=== PATIENT | female | born 1945 | race Caucasian/White ===

== ENCOUNTER → 2016-07-30 | Outpatient (CLI) | payer MEDICARE ==
[~2016-07-30] MED LIST: AMLO5TAB96 PO; ATOR10 PO; BIOT10TA PO; CALC600T34 PO; CART240C4 PO; ESTR2TAB PO; LORTA5 PO; METF500 PO; PROT40TA PO; SPIR25 PO; TAB-TAB PO; WALKER STANDARD; [UNRECOGNIZED DRUG - OTHER]; magnesium PO
[2016-07-30 09:06] LABS: AUTOMATED NEUTROPHIL # 4.4 TH/MM3 (1.8-7.7); BASOPHIL % 0.6 % (0.0-2.0); EOSINOPHIL # 0.1 TH/MM3 (0-0.4); EOSINOPHIL % 1.2 % (0.0-4.0); HEMATOCRIT 37.3 % (35.0-46.0); HEMO FLAGS DIFF FINAL; LYMPH % 31.4 % (9.0-44.0); LYMPHOCYTE # 2.3 TH/MM3 (1.0-4.8); MEAN CELL VOLUME 88.1 FL (80.0-100.0); MEAN CORPUSCULAR HEMOGLOBIN 30.6 PG (27.0-34.0); MEAN CORPUSCULAR HGB CONC 34.7 % (32.0-36.0); MONO % 6.8 % (0.0-8.0); PLATELET COUNT 254 TH/MM3 (150-450); RED BLOOD COUNT 4.24 MIL/MM3 (4.00-5.30); RED CELL DISTRIBUTION WIDTH 13.2 % (11.6-17.2); WHITE BLOOD COUNT 7.3 TH/MM3 (4.0-11.0)
[2016-07-30 09:21] LABS: ALKALINE PHOSPHATASE 81 U/L (45-117); ALT (GPT) 27 U/L (10-53); ANION GAP 6 MEQ/L (5-15); AST (GOT) 22 U/L (15-37); BICARBONATE 27.8 MEQ/L (21.0-32.0); BLOOD UREA NITROGEN 18 MG/DL (7-18); CHLORIDE 104 MEQ/L (98-107); GLOMERULAR FILTRATION RATE 53 ML/MIN (>89); GLUCOSE,FASTING 86 MG/DL (74-99); HDL CHOLESTEROL 69.3 MG/DL (40.0-60.0); LDL CHOLESTEROL 83 MG/DL (0-99); SODIUM (NA) 138 MEQ/L (136-145); TOTAL BILIRUBIN ADULT 0.3 MG/DL (0.2-1.0)
[2016-07-30 16:51] LABS: HEMOGLOBIN A1a 1.1 %; HEMOGLOBIN A1b 0.7 %; HEMOGLOBIN Ao 53.7 %; HEMOGLOBIN F 1.1 %; HEMOGLOBIN LA1C 1.3 %; HEMOGLOBIN P3 2.5 %
== END ==
LOC: PLAB 07:24
PROVIDERS: ATTEND Family Medicine
DX: I10 Essential (primary) hypertension (principal); E78.5 Hyperlipidemia, unspecified; R73.02 Impaired glucose tolerance (oral); E83.42 Hypomagnesemia; R53.83 Other fatigue; Z51.81 Encounter for therapeutic drug level monitoring
CPT/HCPCS: 36415; 80053; 80061; 83036; 83735; 84443; 85025

== ENCOUNTER → 2016-09-29 | Outpatient (CLI) | payer MEDICARE ==
[2016-09-29 10:21] LABS: INDIRECT BILIRUBIN 0.2 MG/DL (0.0-0.8); TOTAL BILIRUBIN ADULT 0.3 MG/DL (0.2-1.0)
== END ==
LOC: PLAB 07:29
PROVIDERS: ATTEND Internal Medicine Gastroenterology
DX: R93.2 Abnormal findings on diagnostic imaging of liver and biliary tract (principal); R93.3 Abnormal findings on diagnostic imaging of other parts of digestive tract; R63.4 Abnormal weight loss; R15.9 Full incontinence of feces; K62.5 Hemorrhage of anus and rectum
CPT/HCPCS: 36415; 80076

== ENCOUNTER → 2017-02-11 | Outpatient (CLI) | payer MEDICARE ==
[~2017-02-11] MED LIST changes: +ASPI325T PO; +ASPI81CH CHEW; +ATOR20TA15 PO; +CALC500C2 CHEW; +CARD240C6 PO; +ESTR2TAB4 PO; +LIPI10TA PO; +METF500T4 PO; +PANT20 PO; +PLAV75TA29 PO; +SPIR25TA PO
[2017-02-11 13:50] LABS: ANION GAP 8 MEQ/L (5-15); AST (GOT) 23 U/L (15-37); BICARBONATE 25.1 MEQ/L (21.0-32.0); BLOOD UREA NITROGEN 16 MG/DL (7-18); CHLORIDE 107 MEQ/L (98-107); GLOMERULAR FILTRATION RATE 60 ML/MIN (>89); GLUCOSE,FASTING 86 MG/DL (74-99); SODIUM (NA) 140 MEQ/L (136-145)
[2017-02-11 14:03] LABS: ALKALINE PHOSPHATASE 79 U/L (45-117); ALT (GPT) 21 U/L (10-53); LDL CHOLESTEROL 80 MG/DL (0-99); LDL CHOLESTEROL DIRECT 103 MG/DL (0-99); TOTAL BILIRUBIN ADULT 0.3 MG/DL (0.2-1.0)
[2017-02-11 16:12] LABS: HEMOGLOBIN A1b 0.6 %; HEMOGLOBIN F 1.1 %; HEMOGLOBIN LA1C 1.3 %; HEMOGLOBIN P3 2.4 %
== END ==
LOC: PLAB 08:33
PROVIDERS: ATTEND Family Medicine
DX: E78.5 Hyperlipidemia, unspecified (principal); N18.3 Chronic kidney disease, stage 3 (moderate); R73.02 Impaired glucose tolerance (oral)
CPT/HCPCS: 36415; 80053; 80061; 83036; 83721

== ENCOUNTER 2017-03-25 11:51 | Inpatient (IN) | payer MEDICARE ==
[2017-03-25] VITALS (7 sets, daily range): BP systolic 106–165; BP diastolic 57–84; PULSE 63–72; RESP 14–18; TEMP 97.8–98.2; O2SAT 94–98
[~2017-03-25] VITALS: Ht 157.5 cm; Wt 64.4 kg
[~2017-03-25 11:51] MED LIST changes: -ASPI325T PO; -ASPI81CH CHEW; -ATOR20TA15 PO; -CALC500C2 CHEW; -CARD240C6 PO; -ESTR2TAB4 PO; -LIPI10TA PO; -METF500T4 PO; -PANT20 PO; -PLAV75TA29 PO; -SPIR25TA PO
[2017-03-25] MEDS ORDERED: SODIUM CHLORIDE 0.9% FLUSH 10 ML FLUSH IVF PRN (12:15)
[2017-03-25] MEDS ORDERED: SODIUM CHLOR 0.9% 1000 ML INJ 1,000 ML IV ONE (12:15)
[2017-03-25] MEDS ORDERED: BIOT10TA PO (12:25)
[2017-03-25] MEDS ORDERED: PANT20 PO (12:25)
[2017-03-25] MEDS ORDERED: ESTR2TAB4 PO (12:25)
[2017-03-25] MEDS ORDERED: SPIR25TA PO (12:25)
[2017-03-25] MEDS ORDERED: CALC500C2 CHEW (12:25)
[2017-03-25] MEDS ORDERED: CARD240C6 PO (12:25)
[2017-03-25] MEDS ORDERED: METF500T4 PO (12:25)
[2017-03-25] MEDS ORDERED: ASPI81CH CHEW (12:25)
[2017-03-25] MEDS ORDERED: LIPI10TA PO (12:25)
[2017-03-25] MEDS ORDERED: ATOR20TA15 PO (12:25)
--- NOTE | 2017-03-25 12:37 | RADRPT ---
EXAM DATE/TIME: 03/25/2017 12:23 [facility] COMPARISON: No previous studies available for comparison. INDICATIONS : Shortness of breath. MEDICAL HISTORY : Heart. SURGICAL HISTORY : None. ENCOUNTER: Initial ACUITY: 1 day PAIN SCORE: 0/10 LOCATION: Bilateral chest FINDINGS: A single view of the chest demonstrates the lungs to be symmetrically aerated without evidence of mas s, infiltrate or effusion. The cardiomediastinal contours are unremarkable. Osseous structures are intact. CONCLUSION: No acute disease. Shahid Rogers MD on March 25, 2017 at 12:35 Board Certified Radiologist. This report was verified electronically.
--- NOTE | 2017-03-25 12:37 | PD ---
HPI Chief Complaint: Neuro Symptoms/ Deficits Time Seen by Provider: 12:01 Travel History International Travel<30 days: No Contact w/Intl Traveler<30days: No Traveled to known affect area: No History of Present Illness HPI Patient is a 72-year-old female with history of vertebral artery dissection, was sent to the emergency room by her neurologist, Dr. Hare for evaluation and admission to the hospital for evaluation of crescendo TIAs. 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 Patient reports that symptoms lasted for about 15 minutes and resolved on its own. Patient reports that symptoms occurred again the next day, she did follow-up with her neurologist Dr. Hare today who was concerned that patient may be having crescendo TIA's. Patient has complete resolutions of time. Patient with no complaints. As per Dr. Hare, patient has history of a right vertebral artery dissection with stent placement at the [facility] one year ago. Patient was sent to the emergency room for CT imaging in as well as admission to the hospital for further workup of TIAs. Patient this time complains of no headache or dizziness, patient with no weakness. Denies any chest pain or shortness of breath. Patient does take a baby ASA every day. PFSH Past Medical History Asthma: Yes (mild) Autoimmune Disease: No Blood Disorders: No Heart Rhythm Problems: No Cancer: No Cardiovascular Problems: Yes High Cholesterol: Yes Chest Pain: No Congestive Heart Failure: No Cerebrovascular Accident: Yes (poss tia) Diminished Hearing: No Endocrine: No Gastrointestinal Disorders: Yes GERD: Yes Genitourinary: No Headaches: No Hypertension: Yes Immune Disorder: No Musculoskeletal: Yes Neurologic: Yes (VISUAL DISTURBANCES) Psychiatric: No Reproductive: No Respiratory: Yes Migraines: Yes (ocular migraines) Myocardial Infarction: No Seizures: No ?: Not Past Surgical History Abdominal Surgery: Yes AICD: No Cardiac Surgery: No Ear Surgery: No Endocrine Surgery: Yes Eye Surgery: No Genitourinary Surgery: No Gynecologic Surgery: No Hysterectomy: Yes (PARTIAL) Oral Surgery: No Pacemaker: No Thoracic Surgery: No Other Surgery: Yes Social History Alcohol Use: Yes (wine daily) Tobacco Use: No Substance Use: No Allergies-Medications (Allergen,Severity, Reaction): Coded Allergies: ADONIS Inhibitors (Verified Allergy, Severe, Anaphylaxis, 03/25/17) ARB-Angiotensin Receptor Antagonist (Verified Allergy, Severe, Anaphylaxis , 03/25/17) Sulfa (Sulfonamide Antibiotics) (Unverified Allergy, Severe, hives, ) benazepril (Unverified Allergy, Severe, anaphylactic, 03/25/17) captopril (Unverified Allergy, Severe, anaphylactic, 03/25/17) cottonseed oil (Unverified Allergy, Severe, hives, 03/25/17) doxycycline (Unverified Allergy, Severe, STATES - NO ALLERGY TO TETRACYCLINE, 03/25/17) enalaprilat (Unverified Allergy, Severe, anaphylactic, 03/25/17) erythromycin base (Unverified Allergy, Severe, hives, 03/25/17) fosinopril (Unverified Allergy, Severe, anaphylactic, 03/25/17) levalbuterol (Unverified Allergy, Severe, sob and flushing, 03/25/17) lisinopril (Unverified Allergy, Severe, anaphylactic, 03/25/17) losartan (Unverified Allergy, Severe, arb's cause anaphylactic, 03/25/17) minocycline (Unverified Allergy, Severe, STATES - NO ALLERGY TO TETRACYCLINE, 03/25/17) quinapril (Unverified Allergy, Severe, anaphylactic, 03/25/17) thimerosal (Verified Allergy, Severe, Swelling, 03/25/17) tigecycline (Unverified Allergy, Severe, STATES - NO ALLERGY TO TETRACYCLINE, 03/25/17) furosemide (Unverified Allergy, Unknown, 03/25/17) Uncoded Allergies: FLU SHOT (Allergy, Severe, generalized swelling, 03/01/08) perservatives in the flu shot Reported Meds & Prescriptions Reported Meds & Active Scripts Active Reported Atorvastatin (Atorvastatin Calcium) 20 Mg Tab 20 Mg PO HS Spironolactone 25 Mg Tab 25 Mg PO DAILY Metformin ER (Metformin HCl) 500 Mg Maggi 500 Mg PO DAILY With evening meal Protonix (Pantoprazole Sodium) 20 Mg Tab 20 Mg PO DAILY Aspirin 81 Mg Chew 81 Mg CHEW DAILY Estrace (Estradiol) 2 Mg Tab 2 Mg PO DAILY Calcium (Calcium Carbonate-Cholecalciferol) 1,250-100 Mg-Unit Chew 1 Tab CHEW DAILY Biotin 10 Mg Tab 10 Mg PO DAILY Lipitor (Atorvastatin Calcium) 10 Mg Tab 10 Mg PO HS Cardizem CD 24 HR (Diltiazem CD 24 HR) 240 Mg Caper 240 Mg PO DAILY [dust mite inj] DIRECTED pt takes this injection q 2-3 weeks [magnesium] 250 Mg PO DAILY Review of Systems General / Constitutional: No: Fever Eyes: No: Visual changes HENT: No: Headaches Cardiovascular: No: Chest Pain or Discomfort Respiratory: No: Shortness of Breath Gastrointestinal: No: Abdominal Pain Genitourinary: No: Dysuria Musculoskeletal: No: Pain Skin: No Rash Neurologic: No: Weakness Psychiatric: No: Depression Endocrine: No: Polydipsia Hematologic/Lymphatic: No: Easy Bruising Physical Exam Narrative GENERAL: NAD, Nontoxic SKIN: Focused skin assessment warm/dry. HEAD: Atraumatic. Normocephalic. EYES: Pupils equal and round. No scleral icterus. No injection or drainage. ENT: No nasal bleeding or discharge. Mucous membranes pink and moist. NECK: Trachea midline. No JVD. CARDIOVASCULAR: Regular rate and rhythm. No murmur appreciated. RESPIRATORY: No accessory muscle use. Clear to auscultation. Breath sounds equal bilaterally. GASTROINTESTINAL: Abdomen soft, non-tender, nondistended. Hepatic and splenic margins not palpable. MUSCULOSKELETAL: No obvious deformities. No clubbing. No cyanosis. No edema. NEUROLOGICAL: Awake and alert. No obvious cranial nerve deficits. Motor grossly within normal limits. Normal speech. CN 2-12 grossly intact with no neurological deficits PSYCHIATRIC: Appropriate mood and affect; insight and judgment normal. Data Data Last Documented VS Vital Signs Date Time Temp Pulse Resp B/P (MAP) Pulse Ox O2 Delivery O2 Flow Rate FiO2 03/25/17 12:31 98 Room Air 03/25/17 11:56 97.8 72 14 Orders Orders Electrocardiogram (03/25/17 12:02) Prothrombin Time / Inr (Pt) (03/25/17 12:02) Act Partial Throm Time (Ptt) (03/25/17 12:02) Complete Blood Count With Diff (03/25/17 12:02) Comprehensive Metabolic Panel (03/25/17 12:02) Creatine Kinase (Cpk) (03/25/17 12:02) Troponin I (03/25/17 12:02) Urinalysis - C+S If Indicated (03/25/17 12:02) Ct Brain W/O Iv Contrast(Rout) (03/25/17 12:02) Cta Brain W Iv Contrast W 3d (03/25/17 12:02) Cta Neck W Iv Contrast W 3d (03/25/17 12:02) Chest, Single Ap (03/25/17 12:02) Ecg Monitoring (03/25/17 12:02) Iv Access Insert/Monitor (03/25/17 12:02) Oximetry (03/25/17 12:02) Sodium Chloride 0.9% Flush (Ns Flush) (03/25/17 12:15) Sodium Chlor 0.9% 1000 Ml Inj (Ns 1000 M (03/25/17 12:15) Iohexol 350 Inj (Omnipaque 350 Inj) (03/25/17 14:15) Aspirin (Aspirin) (03/25/17 15:15) Admit Order (Ed Use Only) (03/25/17 15:13) Labs Laboratory Tests Test 03/25/17 12:12 03/25/17 13:16 White Blood Count 10.1 TH/MM3 Red Blood Count 4.50 MIL/MM3 Hemoglobin 13.9 GM/DL Hematocrit 40.6 % Mean Corpuscular Volume 90.2 FL Mean Corpuscular Hemoglobin 30.8 PG Mean Corpuscular Hemoglobin Concent 34.1 % Red Cell Distribution Width 12.5 % Platelet Count 317 TH/MM3 Mean Platelet Volume 8.0 FL Neutrophils (%) (Auto) 60.9 % Lymphocytes (%) (Auto) 32.1 % Monocytes (%) (Auto) 5.8 % Eosinophils (%) (Auto) 0.8 % Basophils (%) (Auto) 0.4 % Neutrophils # (Auto) 6.1 TH/MM3 Lymphocytes # (Auto) 3.2 TH/MM3 Monocytes # (Auto) 0.6 TH/MM3 Eosinophils # (Auto) 0.1 TH/MM3 Basophils # (Auto) 0.0 TH/MM3 CBC Comment DIFF FINAL Differential Comment Prothrombin Time 10.3 SEC Prothromb Time International Ratio 0.9 RATIO Activated Partial Thromboplast Time 25.6 SEC Blood Urea Nitrogen 15 MG/DL Creatinine 0.95 MG/DL Random Glucose 77 MG/DL Total Protein 7.6 GM/DL Albumin 3.8 GM/DL Calcium Level 9.0 MG/DL Alkaline Phosphatase 82 U/L Aspartate Amino Transf (AST/SGOT) 18 U/L Alanine Aminotransferase (ALT/SGPT) 21 U/L Total Bilirubin 0.4 MG/DL Sodium Level 136 MEQ/L Potassium Level 3.9 MEQ/L Chloride Level 104 MEQ/L Carbon Dioxide Level 24.2 MEQ/L Anion Gap 8 MEQ/L Estimat Glomerular Filtration Rate 58 ML/MIN Total Creatine Kinase 78 U/L Troponin I LESS THAN 0.02 NG/ML Urine Color LIGHT-YELLOW Urine Turbidity CLEAR Urine pH 7.5 Urine Specific Cullen 1.006 Urine Protein NEG mg/dL Urine Glucose (UA) NEG mg/dL Urine Ketones NEG mg/dL Urine Occult Blood NEG Urine Nitrite NEG Urine Bilirubin NEG Urine Urobilinogen LESS THAN 2.0 MG/DL Urine Leukocyte Esterase NEG Urine WBC LESS THAN 1 /hpf Urine Squamous Epithelial Cells 1 /hpf Microscopic Urinalysis Comment CATH-CULT NOT IND MDM Medical Decision Making Medical Screen Exam Complete: Yes Emergency Medical Condition: Yes Medical Record Reviewed: Yes Interpretation(s) EKG at 1224: NSR at 63bpm, qt/qtc: 410/418, no acute st or t wave changes Vital Signs Date Time Temp Pulse Resp B/P (MAP) Pulse Ox O2 Delivery O2 Flow Rate FiO2 03/25/17 11:56 97.8 72 14 148/77 (100) 95 Differential Diagnosis Differential includes TIAs, CVA Narrative Course Patient is a 72-year-old female who was sent to the emergency room by Dr. Hare for admission to the hospital workup for crescendo TIAs. He requested that patient have a CT of the head, and brain to evaluate her stents in her vertebral artery. Patient currently asymptomatic this time. Plan to admit to the hospitalist with neurology consult. Patient is a symptomatic this time. Patient was placed on a property assessment monitor upon arrival to the emergency room. Vital Signs Date Time Temp Pulse Resp B/P (MAP) Pulse Ox O2 Delivery O2 Flow Rate FiO2 03/25/17 12:31 98 Room Air 03/25/17 11:56 97.8 72 14 148/77 (100) 95 Laboratory Tests Test 03/25/17 12:12 03/25/17 13:16 White Blood Count 10.1 TH/MM3 (4.0-11.0) Red Blood Count 4.50 MIL/MM3 (4.00-5.30) Hemoglobin 13.9 GM/DL (11.6-15.3) Hematocrit 40.6 % (35.0-46.0) Mean Corpuscular Volume 90.2 FL (80.0-100.0) Mean Corpuscular Hemoglobin 30.8 PG (27.0-34.0) Mean Corpuscular Hemoglobin Concent 34.1 % (32.0-36.0) Red Cell Distribution Width 12.5 % (11.6-17.2) Platelet Count 317 TH/MM3 (150-450) Mean Platelet Volume 8.0 FL (7.0-11.0) Neutrophils (%) (Auto) 60.9 % (16.0-70.0) Lymphocytes (%) (Auto) 32.1 % (9.0-44.0) Monocytes (%) (Auto) 5.8 % (0.0-8.0) Eosinophils (%) (Auto) 0.8 % (0.0-4.0) Basophils (%) (Auto) 0.4 % (0.0-2.0) Neutrophils # (Auto) 6.1 TH/MM3 (1.8-7.7) Lymphocytes # (Auto) 3.2 TH/MM3 (1.0-4.8) Monocytes # (Auto) 0.6 TH/MM3 (0-0.9) Eosinophils # (Auto) 0.1 TH/MM3 (0-0.4) Basophils # (Auto) 0.0 TH/MM3 (0-0.2) CBC Comment DIFF FINAL Differential Comment Prothrombin Time 10.3 SEC (9.8-11.6) Prothromb Time International Ratio 0.9 RATIO Activated Partial Thromboplast Time 25.6 SEC (24.3-30.1) Blood Urea Nitrogen 15 MG/DL (7-18) Creatinine 0.95 MG/DL (0.50-1.00) Random Glucose 77 MG/DL (74-106) Total Protein 7.6 GM/DL (6.4-8.2) Albumin 3.8 GM/DL (3.4-5.0) Calcium Level 9.0 MG/DL (8.5-10.1) Alkaline Phosphatase 82 U/L (45-117) Aspartate Amino Transf (AST/SGOT) 18 U/L (15-37) Alanine Aminotransferase (ALT/SGPT) 21 U/L (10-53) Total Bilirubin 0.4 MG/DL (0.2-1.0) Sodium Level 136 MEQ/L (136-145) Potassium Level 3.9 MEQ/L (3.5-5.1) Chloride Level 104 MEQ/L (98-107) Carbon Dioxide Level 24.2 MEQ/L (21.0-32.0) Anion Gap 8 MEQ/L (5-15) Estimat Glomerular Filtration Rate 58 ML/MIN (>89) Total Creatine Kinase 78 U/L (26-192) Troponin I LESS THAN 0.02 NG/ML Urine Color LIGHT-YELLOW (YELLW/STRAW) Urine Turbidity CLEAR (CLEAR) Urine pH 7.5 (5.0-8.5) Urine Specific Cullen 1.006 (1.002-1.035) Urine Protein NEG mg/dL (NEG-TRACE) Urine Glucose (UA) NEG mg/dL (NEG) Urine Ketones NEG mg/dL (NEG) Urine Occult Blood NEG (NEG) Urine Nitrite NEG (NEG) Urine Bilirubin NEG (NEG) Urine Urobilinogen LESS THAN 2.0 MG/DL (LESS Urine Leukocyte Esterase NEG (NEG) Urine WBC LESS THAN 1 /hpf (0-5) Urine Squamous Epithelial Cells 1 /hpf (0-5) Microscopic Urinalysis Comment CATH-CULT NOT IND Last Impressions Neck CTA 03/25/171201 Signed Impressions: Service Date/Time: March 13:51 - CONCLUSION: 1. No significant carotid artery stenosis on the right. 2. Approximately 40%% stenosis of the proximal left internal carotid artery secondary to concentric mixed plaque. 3. Tandem calcified plaque in the origin and proximal right vertebral artery with likely moderate resultant stenosis. 4. Please note that the internal carotid cervical segments are significantly medialized with essentially a retropharyngeal course on the right. Wang Barker MD Head CT 03/25/17 120 Signed Impressions: Service Date/Time: March 13:51 - CONCLUSION: Normal examination for a patient of this age. Andrea Gee MD Chest X-Ray 03/25/171201 Signed Impressions: Service Date/Time: March 12:23 - CONCLUSION: No acute disease. Shahid Rogers MD patient was given an asa case reviewed with [facility] residents who accepts pt to their service Diagnosis Primary Impression: TIA (transient ischemic attack) Qualified Codes: G45.9 - Transient cerebral ischemic attack, unspecified Admitting Information Admitting Physician Requests: Nina Pérez DO Mar 25, 2017 12:37
[2017-03-25 12:51] LABS: AUTOMATED NEUTROPHIL # 6.1 TH/MM3 (1.8-7.7); BASOPHIL % 0.4 % (0.0-2.0); EOSINOPHIL # 0.1 TH/MM3 (0-0.4); EOSINOPHIL % 0.8 % (0.0-4.0); HEMATOCRIT 40.6 % (35.0-46.0); HEMO FLAGS DIFF FINAL; LYMPH % 32.1 % (9.0-44.0); LYMPHOCYTE # 3.2 TH/MM3 (1.0-4.8); MEAN CELL VOLUME 90.2 FL (80.0-100.0); MEAN CORPUSCULAR HEMOGLOBIN 30.8 PG (27.0-34.0); MEAN CORPUSCULAR HGB CONC 34.1 % (32.0-36.0); MONO % 5.8 % (0.0-8.0); NEUT % 60.9 % (16.0-70.0); PLATELET COUNT 317 TH/MM3 (150-450); RED CELL DISTRIBUTION WIDTH 12.5 % (11.6-17.2); WHITE BLOOD COUNT 10.1 TH/MM3 (4.0-11.0)
[2017-03-25 13:01] LABS: APTT (PATIENT) 25.6 SEC (24.3-30.1); INTERNATIONAL NORMALIZED RATIO 0.9 RATIO; PROTHROMBIN TIME - PATIENT 10.3 SEC (9.8-11.6)
[2017-03-25 13:20] LABS: ANION GAP 8 MEQ/L (5-15); BICARBONATE 24.2 MEQ/L (21.0-32.0); BLOOD UREA NITROGEN 15 MG/DL (7-18); CHLORIDE 104 MEQ/L (98-107); GLOMERULAR FILTRATION RATE 58 ML/MIN (>89); POTASSIUM 3.9 MEQ/L (3.5-5.1); SODIUM (NA) 136 MEQ/L (136-145)
[2017-03-25 13:21] LABS: ALT (GPT) 21 U/L (10-53)
[2017-03-25 13:25] LABS: ALKALINE PHOSPHATASE 82 U/L (45-117); AST (GOT) 18 U/L (15-37); TOTAL BILIRUBIN ADULT 0.4 MG/DL (0.2-1.0)
[2017-03-25 13:29] LABS: CREATINE KINASE 78 U/L (26-192)
[2017-03-25 13:34] LABS: BLOOD, URINE NEG (NEG); GLUCOSE,URINE NEG (NEG); KETONE, URINE NEG (NEG); NITRITE,URINE NEG (NEG); PH, URINE 7.5 (5.0-8.5); SQUAMOUS EPITHELIAL CELL URINE 1 /hpf (0-5); URINE COLOR LIGHT-YELLOW (YELLW/STRAW)
[2017-03-25 13:35] LABS: COMMENT (UR) CATH-CULT NOT IND; CULTURE IF INDICATED CATH CULTURE NOT IND
[2017-03-25] MEDS ORDERED: IOHEXOL 350 MG/ML 10 ML VIAL (for RAD DIAG) IVCONTRAST ONE (14:15)
--- NOTE | 2017-03-25 14:20 | RADRPT ---
EXAM DATE/TIME: 03/25/2017 13:51 [facility] COMPARISON: No previous studies available for comparison. INDICATIONS : Intermittent right upper extremity flaccidity for 2 days. RADIATION DOSE: 32.13 CTDIvol (mGy) MEDICAL HISTORY : Cerebrovascular disease. Hypertension. SURGICAL HISTORY : Appendectomy. Hysterectomy.Vertebral stent, cervical fusion ENCOUNTER: Initial ACUITY: 2 days PAIN SCALE: 0/10 LOCATION: cranial TECHNIQUE: Multiple contiguous axial images were obtained of the head. Using automated exposure control and adj ustment of the mA and/or kV according to patient size, radiation dose was kept as low as reasonably a chievable to obtain optimal diagnostic quality images. DICOM format image data is available electro nically for review and comparison. FINDINGS: CEREBRUM: The ventricles are normal for age. There is bilateral cortical atrophy. No evidence of midline shift , mass lesion, hemorrhage or acute infarction. No extra-axial fluid collections are seen. POSTERIOR FOSSA: The cerebellum and brainstem are intact. The 4th ventricle is midline. The cerebellopontine angle i s unremarkable. EXTRACRANIAL: The visualized portion of the orbits is intact. SKULL: The calvaria is intact. No evidence of skull fracture. CONCLUSION: Normal examination for a patient of this age. Andrea Gee MD on March 25, 2017 at 14:17 Board Certified Radiologist. This report was verified electronically.
--- NOTE | 2017-03-25 14:52 | RADRPT ---
EXAM DATE/TIME: 03/25/2017 13:51 [facility] COMPARISON: No previous studies available for comparison. INDICATIONS : Intermittent right upper extremity flaccidity for 2 days. IV CONTRAST: 74 cc Omnipaque 350 (iohexol) IV ; Cumulative dose for multiple exams. RADIATION DOSE: 26.78 CTDIvol (mGy) ; Combined studies MEDICAL HISTORY : Cerebrovascular disease. Hypertension. SURGICAL HISTORY : Appendectomy. Hysterectomy.Vertebral stent, cervical fusion ENCOUNTER: Initial ACUITY: 2 days PAIN SCALE: 0/10 LOCATION: neck Elevated flow velocities and ICA/CCA ratios have been found to correlate with increased degrees of vessel stenosis, calculated as percentage of diameter relative to a normal segment of distal ICA/CCA. TECHNIQUE: Volumetric scanning was performed using a multirow detector CT scanner. The data was post processed with a variety of visualization algorithms including full-volume maximum intensity projection, multip lanar sliding thin-slab reformation, curved-planar reformation, and surface-rendering techniques. Us ing automated exposure control and adjustment of the mA and/or kV according to patient size, radiatio n dose was kept as low as reasonably achievable to obtain optimal diagnostic quality images. DICOM f ormat image data is available electronically for review and comparison. FINDINGS: AORTIC ARCH: There is a bovine type two vessel origin of the great vessels from the aorta. No evidence of ostial narrowing. RIGHT CAROTID: The common carotid artery is intact. The carotid bulb is medialized but is otherwise unremarkable wit hout ulceration or narrowing. No significant internal carotid artery stenosis. However, the internal card artery cervical segment is significantly medialized and essentially retropharyngeal and course. The external carotid artery is intact. LEFT CAROTID: The common carotid artery is intact. The carotid bulb is medialized but is otherwise unremarkable wi thout ulceration or narrowing. There is approximately 40% luminal stenosis of the proximal internal c arotid artery secondary to concentric mixed plaque. Again, the internal card artery cervical segment is medialized although less prominently than the right. The external carotid artery is intact. VERTEBRALS: Tandem calcified plaque in the origin and proximal right vertebral artery with likely moderate result ant stenosis. The vertebral arteries otherwise have a symmetric diameter. No stenotic lesions are no mohsen on the left. CONCLUSION: 1. No significant carotid artery stenosis on the right. 2. Approximately 40% stenosis of the proximal left internal carotid artery secondary to concentric mi xed plaque. 3. Tandem calcified plaque in the origin and proximal right vertebral artery with likely moderate res ultant stenosis. 4. Please note that the internal carotid cervical segments are significantly medialized with essentia lly a retropharyngeal course on the right. Wang Barker MD on March 25, 2017 at 14:39 Board Certified Radiologist. This report was verified electronically.
[2017-03-25] MEDS ORDERED: ASPIRIN 325 MG TAB PO ONE (15:15)
--- NOTE | 2017-03-25 15:22 | HHI.HP ---
[facility] Service Family Medicine Primary Care Physician Scott Schaeffer MD Admission Diagnosis Diagnoses: International Travel<30 Days: No Contact w/Intl Traveler<30days: No Known Affected Area: No History of Present Illness Very pleasant 72 year old female with PMH significant for vertebral artery dissection with stent placement at [facility] one year ago, DM, HLD, HTN who is sent to the ED by her neurologist Dr. Hare for further evaluation and concern for crescendo TIAs. Patient reports this past Wednesday she had many visitors over at her house and she started to notice difficulty grasping with her right hand. She continued to feel this weakness throughout the remainder of that day however she states she did not want to notify her neurologist or primary care doctor as she was afraid she might be urged to present up to [place] for studies and she did not have time for that since she had family and friends visiting. She states she continued to have weakness grasping with her right hand on Wednesday, and states the weakness was slightly improved yesterday. She denies any other neuro symptoms upon questioning. She denies other focal neuro deficit. Denies weakness in lower extremity, difficulties with speech, gait imbalances, falls, headaches, visual changes, facial weakness, numbness tingling or paraesthesias of extremities. Denies weakness with grasp of left hand. She states currently her right hand slip seat coverer strength is back to normal. She does also report 2 weeks ago she was doing push ups and felt some pain in her left shoulder while doing so. She denies any popping sensations, severe pain , or noticing any immediate swelling. She continued to work throughout the day and her left shoulder pain worsened. It has not significantly worsened over the past 2 weeks however has not changed with regard to pain and weakness. She has significant restriction with range of motion with flexion and abduction of the joint. She states her primary care physician had ordered her an x-ray and she had an MRI of her left shoulder scheduled for this coming Wednesday. She is unable to lift her arm up past 45 degrees without having significant pain. (Juan Gurrola MD R2) Review of Systems Constitutional: DENIES: Fever, Chills, Dizziness, Change in appetite Eyes: DENIES: Blurred vision, Double Vision Ears, nose, mouth, throat: DENIES: Tinnitus Respiratory: DENIES: Cough, Shortness of breath Cardiovascular: DENIES: Chest pain, Palpitations Gastrointestinal: DENIES: Abdominal pain, Constipation, Diarrhea, Nausea, Vomiting Genitourinary: DENIES: Hematuria, Dysuria Neurologic: COMPLAINS OF: Localized weakness (Right hand slip seat coverer strength weakness ), DENIES: Abnormal gait, Headache, Paresthesias, Speech Problems (Juan Gurrola MD R2) Past Family Social History Past Medical History CVA Mild asthma HLD Ocular migraines GERD DM HTN Chronic angioedema Aortic insufficiency and mitral regurgitation Past Surgical History Tonsillectomy 1948 Appendectomy 1960 Hysterectomy 1971 Left wrist ORIF 1987 Sinus surgery 2006 Vertebral artery stent placement 03/2016 C-spine surgery ~2007 R shoulder rotator cuff repair 2014 (Juan Gurrola MD R2) Allergies: Coded Allergies: ADONIS Inhibitors (Verified Allergy, Severe, Anaphylaxis, 03/25/17) ARB-Angiotensin Receptor Antagonist (Verified Allergy, Severe, Anaphylaxis , 03/25/17) Sulfa (Sulfonamide Antibiotics) (Unverified Allergy, Severe, hives, ) benazepril (Unverified Allergy, Severe, anaphylactic, 03/25/17) captopril (Unverified Allergy, Severe, anaphylactic, 03/25/17) cottonseed oil (Unverified Allergy, Severe, hives, 03/25/17) doxycycline (Unverified Allergy, Severe, STATES - NO ALLERGY TO TETRACYCLINE, 03/25/17) enalaprilat (Unverified Allergy, Severe, anaphylactic, 03/25/17) erythromycin base (Unverified Allergy, Severe, hives, 03/25/17) fosinopril (Unverified Allergy, Severe, anaphylactic, 03/25/17) levalbuterol (Unverified Allergy, Severe, sob and flushing, 03/25/17) lisinopril (Unverified Allergy, Severe, anaphylactic, 03/25/17) losartan (Unverified Allergy, Severe, arb's cause anaphylactic, 03/25/17) minocycline (Unverified Allergy, Severe, STATES - NO ALLERGY TO TETRACYCLINE, 03/25/17) quinapril (Unverified Allergy, Severe, anaphylactic, 03/25/17) thimerosal (Verified Allergy, Severe, Swelling, 03/25/17) tigecycline (Unverified Allergy, Severe, STATES - NO ALLERGY TO TETRACYCLINE, 03/25/17) furosemide (Unverified Allergy, Unknown, 03/25/17) Uncoded Allergies: FLU SHOT (Allergy, Severe, generalized swelling, 03/01/08) perservatives in the flu shot Family History Father: at age 49 from CHF Mother: at age 74, unsure cause Social History Tobacco: denies smoking in over 30 years, 1/2 PPD for about 10-15 years prior to quitting smoking Etoh: red wine nightly with dinner, never more than 1-2 glasses nightly, sometimes chardonnay Illicit drug use: denies Lives at home with her (Juan Gurrola MD R2) Physical Exam Vital Signs Vital Signs Date Time Temp Pulse Resp B/P (MAP) Pulse Ox O2 Delivery O2 Flow Rate FiO2 03/25/17 12:31 98 Room Air 03/25/17 11:56 97.8 72 14 148/77 (100) 95 Physical Exam GENERAL: NAD, lying comfortably in bed NEURO: Alert. Normal speech. 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 Motor normal with exception of left shoulder as documented below. Strength 5/5 throughout including right hand slip seat coverer strength. No dysdiadochokinesia. [id number] testing normal. No pronator drift. Patellar reflexes 2/4 bilaterally. Sensation intact on face and extremities to light touch. SKIN: Warm and dry. No rashes or erythema. HEAD: Normocephalic. Atraumatic. EYES: PERRL. EOMI. No scleral icterus. No injection or drainage. ENT: No nasal drainage. Moist mucous membranes. No oral ulcers or lesions. NECK: Supple, trachea midline. No JVD. CARDIOVASCULAR: Regular rate and rhythm without murmurs, rubs, or gallops. Peripheral pulses 2+. Capillary refill < 2 seconds. RESPIRATORY: Breath sounds clear to auscultation and equal bilaterally, without wheezes, rales, or rhonchi. No accessory muscle use. GASTROINTESTINAL: Abdomen soft, nontender, nondistended, normal BS. No organomegaly or masses. No rebound tenderness. No guarding. MUSCULOSKELETAL: No lower extremity edema. Left shoulder with restricted range of motion to about 45 degrees of forward flexion. Also having pain with abduction and adduction. Tender to palpation around glenohumeral joint. No obvious edema. BACK: Nontender without obvious deformity. Laboratory Laboratory Tests Test 03/25/17 12:12 03/25/17 13:16 White Blood Count 10.1 Red Blood Count 4.50 Hemoglobin 13.9 Hematocrit 40.6 Mean Corpuscular Volume 90.2 Mean Corpuscular Hemoglobin 30.8 Mean Corpuscular Hemoglobin Concent 34.1 Red Cell Distribution Width 12.5 Platelet Count 317 Mean Platelet Volume 8.0 Neutrophils (%) (Auto) 60.9 Lymphocytes (%) (Auto) 32.1 Monocytes (%) (Auto) 5.8 Eosinophils (%) (Auto) 0.8 Basophils (%) (Auto) 0.4 Neutrophils # (Auto) 6.1 Lymphocytes # (Auto) 3.2 Monocytes # (Auto) 0.6 Eosinophils # (Auto) 0.1 Basophils # (Auto) 0.0 CBC Comment DIFF FINAL Differential Comment Prothrombin Time 10.3 Prothromb Time International Ratio 0.9 Activated Partial Thromboplast Time 25.6 Blood Urea Nitrogen 15 Creatinine 0.95 Random Glucose 77 Total Protein 7.6 Albumin 3.8 Calcium Level 9.0 Alkaline Phosphatase 82 Aspartate Amino Transf (AST/SGOT) 18 Alanine Aminotransferase (ALT/SGPT) 21 Total Bilirubin 0.4 Sodium Level 136 Potassium Level 3.9 Chloride Level 104 Carbon Dioxide Level 24.2 Anion Gap 8 Estimat Glomerular Filtration Rate 58 Total Creatine Kinase 78 Troponin I LESS THAN 0.02 Urine Color LIGHT-YELLOW Urine Turbidity CLEAR Urine pH 7.5 Urine Specific [place] 1.006 Urine Protein NEG Urine Glucose (UA) NEG Urine Ketones NEG Urine Occult Blood NEG Urine Nitrite NEG Urine Bilirubin NEG Urine Urobilinogen LESS THAN 2.0 Urine Leukocyte Esterase NEG Urine WBC LESS THAN 1 Urine Squamous Epithelial Cells 1 Microscopic Urinalysis Comment CATH-CULT NOT IND (Juan Gurrola MD R2) Result Diagram: 03/25/17 1212 03/25/17 121 Caprini VTE Risk Assessment Caprini VTE Risk Assessment: Mod/High Risk (score >= 2) Caprini Risk Assessment Model Point Value = 1 Point Value = 2 Point Value = 3 Point Value = 5 Age 41-60 Minor surgery BMI > 25 kg/m2 Swollen legs Varicose veins or History of unexplained or recurrent spontaneous Oral contraceptives or hormone replacement Sepsis (< 1 month) Serious lung disease, including pneumonia (< 1 month) Abnormal pulmonary function Acute myocardial infarction Congestive heart failure (< 1 month) History of inflammatory bowel disease Medical patient at bed rest Age 61-74 Arthroscopic surgery Major open surgery (> 45 min) Laparoscopic surgery (> 45 min) Malignancy Confined to bed (> 72 hours) Immobilizing plaster cast Central venous access Age >= 75 History of VTE Family history of VTE Factor V Leiden Prothrombin [id number] Lupus anticoagulant Anticardiolipin antibodies Elevated serum homocysteine Heparin-induced thrombocytopenia Other congenital or acquired thrombophilia Stroke (< 1 month) Elective arthroplasty Hip, pelvis, or leg fracture Acute spinal cord injury (< 1 month) Prophylaxis Regimen Total Risk Factor Score Risk Level Prophylaxis Regimen 0-1 Low Early ambulation 2 Moderate Order ONE of the following: *Sequential Compression Device (SCD) *Heparin 5000 units SQ BID 3-4 Higher Order ONE of the following medications: *Heparin 5000 units SQ TID *Enoxaparin/Lovenox 40 mg SQ daily (WT < 150 kg, CrCl > 30 mL/min) *Enoxaparin/Lovenox 30 mg SQ daily (WT < 150 kg, CrCl > 10-29 mL/min) *Enoxaparin/Lovenox 30 mg SQ BID (WT < 150 kg, CrCl > 30 mL/min) AND/OR *Sequential Compression Device (SCD) 5 or more Highest Order ONE of the following medications: *Heparin 5000 units SQ TID (Preferred with Epidurals) *Enoxaparin/Lovenox 40 mg SQ daily (WT < 150 kg, CrCl > 30 mL/min) *Enoxaparin/Lovenox 30 mg SQ daily (WT < 150 kg, CrCl > 10-29 mL/min) *Enoxaparin/Lovenox 30 mg SQ BID (WT < 150 kg, CrCl > 30 mL/min) AND *Sequential Compression Device (SCD) (Juan Gurrola MD R2) Assessment and Plan Assessment and Plan Very pleasant 72 year old woman being admitted for further workup given concern for having crescendo TIAs. Code Status Full code Discussed Condition With Dr. Nadeen Lassiter (Juan Gurrola MD R2) Attending Attestation THIS CASE WAS DISCUSSED WITH THE RESIDENT PHYSICIANS. I HAVE REVIEWED THE RECORD AND AGREE WITH THE ABOVE NOTE AND PLAN OF CARE WAS DISCUSSED. I HAVE AUTHORIZED THE ORDER FOR ADMISSION TO AN IN-PATIENT STATUS. (Arlen Givens MD) Problem List: (1) TIA (transient ischemic attack) ICD Codes: G45.9 - Transient cerebral ischemic attack, unspecified Status: Acute Plan: Differential including recurrent TIAs, vertebral artery occlusion, vs less likely especially given patients risk factors and history a MSK or nerve root cause Neurology consulted, patient known to Dr. Hare 2D echo ordered to evaluate for possible cardioembolic source Head CT normal Head CTA unremarkable exam of the head. No evidence for large vessel occlusion, intracranial stenosis, or aneurysm. Neck CTA demonstrating no significant carotid artery stenosis on the right. Approximately 40% stenosis of the proximal left internal carotid artery. Tandem calcified plaque in the origin and proximal right vertebral artery with likely moderate resultant stenosis. MRI and MRA brain ordered Patient passed bedside nursing swallow assessment, ok for PO diet Obtain lipid profile and A1c Continue neuro checks q4h Per neurology recommendations, started patient on dual antiplatelet therapy with aspirin and plavix NS at 70 cc/hr Continue Lipitor 20 mg po hs (2) Diabetes mellitus ICD Codes: E11.9 - Type 2 diabetes mellitus without complications Status: Chronic (3) Left shoulder pain ICD Codes: M25.512 - Pain in left shoulder Status: Acute Plan: Patient with likely rotator cuff tear MRI shoulder ordered, will follow results (4) Arrhythmia ICD Codes: I49.9 - Cardiac arrhythmia, unspecified Status: Chronic Plan: Regular rate and rhythm on exam Continue home Cardizem 240 mg po daily Continuous telemetry (5) Hyperlipidemia ICD Codes: E78.5 - Hyperlipidemia, unspecified Status: Chronic Plan: Continue home Lipitor (6) Nutrition, metabolism, and development symptoms ICD Codes: R63.8 - Other symptoms and signs concerning food and fluid intake Status: Acute Plan: Fluids: NS at 70 cc/hr Electrolytes: WNL, continue to monitor Nutrition: HHD DVT ppx: b/l SCDs (Juan Gurrola MD R2) Physician Certification 2 Midnight Certification Type: Admission for Inpatient Services Order for Inpatient Services The services are ordered in accordance with Medicare regulations or non- Medicare payer requirements, as applicable. In the case of services not specified as inpatient-only, they are appropriately provided as inpatient services in accordance with the 2-midnight benchmark. Estimated LOS (days): 2 days is the estimated time the patient will need to remain in the hospital, assuming treatment plan goals are met and no additional complications. Post-Hospital Plan: Home (Juan Gurrola MD R2) 2 Midnight Certification Type: Admission for Inpatient Services Post-Hospital Plan: Home (Arlen Givens MD) Problem Qualifiers (1) TIA (transient ischemic attack): Qualified Codes: G45.9 - Transient cerebral ischemic attack, unspecified Juan Gurrola MD R2 Mar 25, 2017 15:22 Arlen Givens MD Mar 26, 2017 14:12
[2017-03-25] MEDS ORDERED: NALOXONE HCL 0.4 MG/ML AMP IV PUSH PRN (16:00)
[2017-03-25] MEDS ORDERED: SODIUM CHLORIDE 0.9% FLUSH 5 ML FLUSH IV FLUSH PRN (16:00)
[2017-03-25] MEDS ORDERED: DEXTROSE 50% IN WATER 50 ML VIAL(D50) IV PUSH PRN (16:00)
[2017-03-25] MEDS ORDERED: SODIUM CHLORIDE 0.9% FLUSH 10 ML FLUSH IV FLUSH PRN (16:00)
[2017-03-25] MEDS ORDERED: GLUCAGON 1 MG/ML VIAL OTHER PRN (16:00)
--- NOTE | 2017-03-25 16:18 | RADRPT ---
EXAM DATE/TIME: 03/25/2017 13:51 [place] COMPARISON: No previous studies available for comparison. INDICATIONS : Intermittent right upper extremity flaccidity for 2 days. IV CONTRAST: 74 cc Omnipaque 350 (iohexol) IV ; Cumulative dose for multiple exams. RADIATION DOSE: 26.78 CTDIvol (mGy) ; Combined studies MEDICAL HISTORY : Cerebrovascular disease. Hypertension. SURGICAL HISTORY : Appendectomy. Hysterectomy.Vertebral stent, cervical fusion ENCOUNTER: Initial ACUITY: 2 days PAIN SCALE: 0/10 LOCATION: cranial TECHNIQUE: Volumetric scanning was performed using a multi-row detector CT scanner. The data was post processed with a variety of visualization algorithms including full volume maximum intensity projection, multi -planar sliding thin slab reformation, curved planar reformation, and surface rendering techniques. Using automated exposure control and adjustment of the mA and/or kV according to patient size, radiat ion dose was kept as low as reasonably achievable to obtain optimal diagnostic quality images. DICO M format image data is available electronically for review and comparison. FINDINGS: Anterior circulation: Distal intracranial internal carotid arteries are patent with flow extending to the middle and anteri or cerebral arteries. There is no evidence for aneurysm, vessel truncation or stenosis, and no eviden ce for vascular malformation. Posterior circulation: Symmetric distal vertebral arteries with flow extending to basilar artery. There is no evidence for aneurysm, vessel truncation or stenosis, and no evidence for vascular malformation. CONCLUSION: 1. Unremarkable CTA examination of the head. Specifically, no evidence for large vessel occlusion, in tracranial stenosis, or aneurysm. Wang Barker MD on March 25, 2017 at 16:11 Board Certified Radiologist. This report was verified electronically.
[2017-03-25] MEDS: INSULIN ASPART SUPPLEMENTAL SCALE SQ SCH ×2 (17:00→21:00)
--- NOTE | 2017-03-25 17:13 | MB ---
cc: JUAN ISAAC DATE OF CONSULTATION 03/25/17 REASON FOR CONSULTATION TIAs. HISTORY OF PRESENT ILLNESS Ms. Woods is a very pleasant 72-year-old woman who has a history of a previous right vertebral artery dissection with stenting done at the [facility] about a year ago. She initially was on combination Plavix plus aspirin therapy but came off the Plavix after a couple of months, has been doing well neurologically until last March 22, when she suddenly developed significant weakness in the right arm and right hand with difficulty moving the extremity. She was also noted to have clumsiness. This lasted 10 minutes and then completely resolved. She had no speech difficulties or other neurologic symptoms. The following day on the , she had recurrence of the identical symptoms of the right hand which again resolved after 10-15 minutes with no sequelae. PAST MEDICAL HISTORY 1. History of vertigo 2. History of cervical spine surgery. 3. History of right vertebral dissection with stenting. 4. She was told at the [facility] that she may have a focal seizure focus. NEUROLOGIC EXAMINATION Blood pressure is 148/77, pulse 72, respirations 14, temperature 97 degrees. Higher cortical function is normal. Cranial nerves are intact. On motor exam, she has normal strength and tone of all groups in both upper and lower extremities. There is no drift. Fine motor skills are normal. Reflexes are 2+ symmetric with no Babinski sign present. IMAGING STUDIES CT of the brain is normal. CT angiogram of the neck shows about 30% stenosis of the left internal carotid artery with some calcific plaque. She has evidence of a right vertebral stent. The right vertebral artery is diminutive terminating in the pica. The stent does appear to be patent. There is some tandem calcified plaque at the origin of the proximal right vertebral artery with moderate stenosis. Right carotid is normal. CTA of the brain is normal with no significant stenosis. LABORATORY DATA White count 10,100, hemoglobin 13.9, hematocrit 40.6% platelet count 317,000. Sodium is 136, potassium 3.9, chloride 104, CO2 24.2, BUN is 15, creatinine 0.95, GFR is 58, glucose 77, AST 18, ALT is 21, lipid panel pending. PT 10.3, INR 0.9, APTT 25.6. IMPRESSION Recurrent TIAs probably left hemispheric. The right vertebral artery appears to be very diminutive. I do not feel this is the cause of her symptoms. She does not have any sign of significant carotid artery stenosis. RECOMMENDATIONS We will start Plavix in addition aspirin therapy. We will also obtain an echocardiogram and monitor cardiac telemetry to rule out cardioembolic source. Also check a lipid panel. Also we will check an MRI of the brain. MD JOAO Corona/ /3:57 PM /4:59 PM
[2017-03-25] MEDS: ASPIRIN 325 MG TAB PO SCH (17:49)
[2017-03-25] MEDS: CLOPIDOGREL 75 MG TAB PO SCH (17:49)
[2017-03-25] MEDS: SODIUM CHLOR 0.9% 1000 ML INJ 1,000 ML IV SCH (17:49)
[2017-03-25] MEDS ORDERED: ATORVASTATIN 20 MG TAB PO SCH (21:00)
[2017-03-25] MEDS ORDERED: SODIUM CHLORIDE 0.9% FLUSH 5 ML FLUSH IV FLUSH SCH (21:00)
[2017-03-25] MEDS ORDERED: SODIUM CHLORIDE 0.9% FLUSH 10 ML FLUSH IV FLUSH SCH (21:00)
[2017-03-25 21:21] LABS: HEMOGLOBIN A1a 0.9 %; HEMOGLOBIN A1b 0.7 %; HEMOGLOBIN Ao 53.4 %; HEMOGLOBIN F 1.1 %; HEMOGLOBIN LA1C 1.3 %; HEMOGLOBIN P3 2.4 %
[2017-03-26 05:07] VITALS: BP 100/58; PULSE 69; RESP 16; TEMP 97.9; O2SAT 97
[2017-03-26 06:27] LABS: AUTOMATED NEUTROPHIL # 4.6 TH/MM3 (1.8-7.7); BASOPHIL % 0.5 % (0.0-2.0); EOSINOPHIL # 0.1 TH/MM3 (0-0.4); EOSINOPHIL % 1.3 % (0.0-4.0); HEMATOCRIT 39.4 % (35.0-46.0); HEMO FLAGS DIFF FINAL; LYMPH % 27.3 % (9.0-44.0); MEAN CELL VOLUME 91.5 FL (80.0-100.0); MEAN CORPUSCULAR HEMOGLOBIN 31.5 PG (27.0-34.0); MEAN CORPUSCULAR HGB CONC 34.4 % (32.0-36.0); NEUT % 63.9 % (16.0-70.0); PLATELET COUNT 290 TH/MM3 (150-450); RED BLOOD COUNT 4.31 MIL/MM3 (4.00-5.30); RED CELL DISTRIBUTION WIDTH 12.4 % (11.6-17.2); WHITE BLOOD COUNT 7.2 TH/MM3 (4.0-11.0)
[2017-03-26 06:49] LABS: POTASSIUM 3.6 MEQ/L (3.5-5.1)
[2017-03-26 06:52] LABS: HDL CHOLESTEROL 69.8 MG/DL (40.0-60.0)
[2017-03-26] MEDS: SODIUM CHLOR 0.9% 1000 ML INJ 1,000 ML IV SCH (07:18)
[2017-03-26 07:57] VITALS: BP 123/58; PULSE 66; RESP 20; TEMP 97.4; O2SAT 96
[2017-03-26] MEDS: INSULIN ASPART SUPPLEMENTAL SCALE SQ SCH (08:00)
[2017-03-26] MEDS: ASPIRIN 325 MG TAB PO SCH (08:13)
[2017-03-26] MEDS: CLOPIDOGREL 75 MG TAB PO SCH (08:14)
[2017-03-26 08:20] VITALS: O2SAT 99
--- NOTE | 2017-03-26 08:59 | HHI.PR ---
Review/Management Diagnosis Probable left hemisphere TIA---no recurrences on plavix 75 mg daily and asa 325 mg daily. Telemetry is NSR with no afib history of cervical spondylosis right vertebral dissection and stent one year ago--patent on yesterdays CTA Plan Follow up MRI brain and cervical spine--if stable with no acute cva and no significant spinal stenosis in cervical spine--ok to discharge home on plavix 75 mg daily and asa 325 mg daily will also f/u EEG and ECHO Diagnosis/Plan: Subjective Subjective Comments No acute events reported No further episodes of right arm weakness. Active Medications Current Medications Medications (Trade) Dose Ordered Sig/Yani Route Start Time Stop Time Status Last Admin (Lipitor) 20 mg HS PO 03/25/17 21:00 (Cardizem Cd) 240 mg DAILY PO 03/26/17 09:00 03/26/17 08:13 (Aldactone) 25 mg DAILY PO 03/26/17 09:00 03/26/17 08:13 Sodium Chloride 1,000 ml @ 70 mls/hr [id number] IV 03/25/17 17:00 03/26/17 07:18 (Aspirin) 325 mg DAILY PO 03/25/17 17:00 03/26/17 08:13 (Plavix) 75 mg DAILY PO 03/25/17 17:00 03/26/17 08:14 (NovoLOG SUPPLEMENTAL SCALE) 1 ACHS SQ 03/25/17 17:00 (D50w (Vial) Inj) 50 ml UNSCH PRN IV PUSH 03/25/17 16:00 (Glucagon Inj) 1 mg UNSCH PRN OTHER 03/25/17 16:00 (NS Flush) 2 ml UNSCH PRN IV FLUSH 03/25/17 16:00 (NS Flush) 2 ml BID IV FLUSH 03/25/17 21:00 (Narcan Inj) 0.4 mg UNSCH PRN IV PUSH 03/25/17 16:00 Allergies Allergies Coded Allergies ADONIS Inhibitors (Verified Allergy, Severe, Anaphylaxis, 03/25/17) ARB-Angiotensin Receptor Antagonist (Verified Allergy, Severe, Anaphylaxis, ) Sulfa (Sulfonamide Antibiotics) (Unverified Allergy, Severe, hives, 03/25/17) benazepril (Unverified Allergy, Severe, anaphylactic, 03/25/17) captopril (Unverified Allergy, Severe, anaphylactic, 03/25/17) cottonseed oil (Unverified Allergy, Severe, hives, 03/25/17) doxycycline (Unverified Allergy, Severe, STATES - NO ALLERGY TO TETRACYCLINE, 03/25/17) enalaprilat (Unverified Allergy, Severe, anaphylactic, 03/25/17) erythromycin base (Unverified Allergy, Severe, hives, 03/25/17) fosinopril (Unverified Allergy, Severe, anaphylactic, 03/25/17) levalbuterol (Unverified Allergy, Severe, sob and flushing, 03/25/17) lisinopril (Unverified Allergy, Severe, anaphylactic, 03/25/17) losartan (Unverified Allergy, Severe, arb's cause anaphylactic, 03/25/17) minocycline (Unverified Allergy, Severe, STATES - NO ALLERGY TO TETRACYCLINE, 03/25/17) quinapril (Unverified Allergy, Severe, anaphylactic, 03/25/17) thimerosal (Verified Allergy, Severe, Swelling, 03/25/17) tigecycline (Unverified Allergy, Severe, STATES - NO ALLERGY TO TETRACYCLINE, 03/25/17) furosemide (Unverified Allergy, Unknown, 03/25/17) Uncoded Allergies FLU SHOT ( Allergy, Severe, generalized swelling, 03/01/08) Exam I&O / VS Vital Signs Date Time Temp Pulse Resp B/P (MAP) Pulse Ox O2 Delivery O2 Flow Rate FiO2 03/26/17 07:57 97.4 66 20 123/58 (79) 96 03/26/17 05:07 97.9 69 16 100/58 (72) 97 03/25/17 23:58 97.9 63 16 106/57 (73) 96 03/25/17 20:20 98.2 67 16 122/60 (80) 94 03/25/17 17:00 97.8 65 18 139/62 (87) 95 03/25/17 16:49 03/25/17 16:18 69 14 118/84 (95) 96 03/25/17 13:15 70 16 165/65 (98) 97 03/25/17 12:31 98 Room Air 03/25/17 11:56 97.8 72 14 148/77 (100) 95 Exam Comments alert, speech fluent, comprehension normal CN no facial asymmetry or facial droop MOTOR--moving both upper extremities equally with no focal weakness Objective Radiology Results MRI brain---pending MRI cervical spine --pending Micro and Labs Laboratory Tests Test 03/25/17 12:12 03/25/17 13:16 03/26/17 05:36 White Blood Count 10.1 7.2 Red Blood Count 4.50 4.31 Hemoglobin 13.9 13.6 Hematocrit 40.6 39.4 Mean Corpuscular Volume 90.2 91.5 Mean Corpuscular Hemoglobin 30.8 31.5 Mean Corpuscular Hemoglobin Concent 34.1 34.4 Red Cell Distribution Width 12.5 12.4 Platelet Count 317 290 Mean Platelet Volume 8.0 7.8 Neutrophils (%) (Auto) 60.9 63.9 Lymphocytes (%) (Auto) 32.1 27.3 Monocytes (%) (Auto) 5.8 7.0 Eosinophils (%) (Auto) 0.8 1.3 Basophils (%) (Auto) 0.4 0.5 Neutrophils # (Auto) 6.1 4.6 Lymphocytes # (Auto) 3.2 2.0 Monocytes # (Auto) 0.6 0.5 Eosinophils # (Auto) 0.1 0.1 Basophils # (Auto) 0.0 0.0 CBC Comment DIFF FINAL DIFF FINAL Differential Comment Prothrombin Time 10.3 Prothromb Time International Ratio 0.9 Activated Partial Thromboplast Time 25.6 Blood Urea Nitrogen 15 13 Creatinine 0.95 0.88 Random Glucose 77 93 Total Protein 7.6 Albumin 3.8 Calcium Level 9.0 8.3 Alkaline Phosphatase 82 Aspartate Amino Transf (AST/SGOT) 18 Alanine Aminotransferase (ALT/SGPT) 21 Total Bilirubin 0.4 Sodium Level 136 138 Potassium Level 3.9 3.6 Chloride Level 104 106 Carbon Dioxide Level 24.2 26.0 Anion Gap 8 6 Estimat Glomerular Filtration Rate 58 63 Hemoglobin A1c 6.2 Total Creatine Kinase 78 Troponin I LESS THAN 0.02 Urine Color LIGHT-YELLOW Urine Turbidity CLEAR Urine pH 7.5 Urine Specific [place] 1.006 Urine Protein NEG Urine Glucose (UA) NEG Urine Ketones NEG Urine Occult Blood NEG Urine Nitrite NEG Urine Bilirubin NEG Urine Urobilinogen LESS THAN 2.0 Urine Leukocyte Esterase NEG Urine WBC LESS THAN 1 Urine Squamous Epithelial Cells 1 Microscopic Urinalysis Comment CATH-CULT NOT IND Triglycerides Level 187 Cholesterol Level 178 LDL Cholesterol 71 HDL Cholesterol 69.8 Cholesterol/HDL Ratio 2.55 Daljit Hare PhD Mar 26, 2017 08:59
[2017-03-26] MEDS ORDERED: ASPIRIN 81 MG CHEW TAB CHEW SCH (09:00)
[2017-03-26] MEDS ORDERED: SPIRONOLACTONE 25 MG TAB PO SCH (09:00)
[2017-03-26] MEDS ORDERED: DILTIAZEM-CD 240 MG CAP ER PO SCH (09:00)
[2017-03-26 12:20] VITALS: BP 129/66; PULSE 69; RESP 20; TEMP 97.4; O2SAT 97
--- NOTE | 2017-03-26 12:23 | HHI.FPPN ---
Problem Problem List: (1) TIA (transient ischemic attack) (2) Vestibular dysfunction (3) Left shoulder pain (4) Hyperlipidemia (5) Arrhythmia (6) Diabetes mellitus (7) Degenerative disc disease, cervical (8) Degenerative cervical spinal stenosis Subjective Subjective 72 year old female with PMH significant for vertebral artery dissection with stent placement at [facility] one year ago, DM, HLD, HTN who is sent to the ED by her neurologist Dr. Hare for further evaluation and concern for crescendo TIAs. Patient reported on Wednesday she noticed difficulty grasping with her right hand and weakness that persisted until time of admission. No other neurologic symptoms or deficits. She also c/o severe pain in her left shoulder for the past two weeks -- occurred after exercise with a popping sensation and she has very limited ROM of the should since then. Patient reports no other symptoms this morning or overnight since admission. She states she feels back to her baseline. Review of Systems Constitutional: DENIES: Fever, Chills, Dizziness, Change in appetite Eyes: DENIES: Blurred vision, Double Vision Ears, nose, mouth, throat: DENIES: Tinnitus Respiratory: DENIES: Cough, Shortness of breath Cardiovascular: DENIES: Chest pain, Palpitations, CARDOZA Gastrointestinal: DENIES: Abdominal pain, Constipation, Diarrhea, Nausea, Vomiting Genitourinary: DENIES: Hematuria, Dysuria Neurologic: DENIES weakness, DENIES: Abnormal gait, Headache, Paresthesias, Speech Problems Past Family Social History Past Medical History CVA Mild asthma HLD Ocular migraines GERD DM HTN Chronic angioedema Aortic insufficiency and mitral regurgitation Past Surgical History Tonsillectomy 1948 Appendectomy 1960 Hysterectomy 1970 Left wrist ORIF 1986 Sinus surgery 2006 Vertebral artery stent placement 03/2016 C-spine surgery ~2008 R shoulder rotator cuff repair 2014 Allergies: Coded Allergies: ADONIS Inhibitors (Verified Allergy, Severe, Anaphylaxis, 03/25/17) ARB-Angiotensin Receptor Antagonist (Verified Allergy, Severe, Anaphylaxis , 03/25/17) Sulfa (Sulfonamide Antibiotics) (Unverified Allergy, Severe, hives, ) benazepril (Unverified Allergy, Severe, anaphylactic, 03/25/17) captopril (Unverified Allergy, Severe, anaphylactic, 03/25/17) cottonseed oil (Unverified Allergy, Severe, hives, 03/25/17) doxycycline (Unverified Allergy, Severe, STATES - NO ALLERGY TO TETRACYCLINE, 03/25/17) enalaprilat (Unverified Allergy, Severe, anaphylactic, 03/25/17) erythromycin base (Unverified Allergy, Severe, hives, 03/25/17) fosinopril (Unverified Allergy, Severe, anaphylactic, 03/25/17) levalbuterol (Unverified Allergy, Severe, sob and flushing, 03/25/17) lisinopril (Unverified Allergy, Severe, anaphylactic, 03/25/17) losartan (Unverified Allergy, Severe, arb's cause anaphylactic, 03/25/17) minocycline (Unverified Allergy, Severe, STATES - NO ALLERGY TO TETRACYCLINE, 03/25/17) quinapril (Unverified Allergy, Severe, anaphylactic, 03/25/17) thimerosal (Verified Allergy, Severe, Swelling, 03/25/17) tigecycline (Unverified Allergy, Severe, STATES - NO ALLERGY TO TETRACYCLINE, 03/25/17) furosemide (Unverified Allergy, Unknown, 03/25/17) Uncoded Allergies: FLU SHOT (Allergy, Severe, generalized swelling, 03/01/08) preservatives in the flu shot Family History Father: at age 49 from CHF Mother: at age 74, unsure cause Social History Tobacco: denies smoking in over 30 years, 1/2 PPD for about 10-15 years prior to quitting smoking Etoh: 1-2 glasses wine daily Illicit drug use: denies Lives at home with her Hospital Objective Objective Last Impressions Neck CTA 03/25/17 1202 Signed Impressions: Service Date/Time: March 13:51 - CONCLUSION: 1. No significant carotid artery stenosis on the right. 2. Approximately 40%% stenosis of the proximal left internal carotid artery secondary to concentric mixed plaque. 3. Tandem calcified plaque in the origin and proximal right vertebral artery with likely moderate resultant stenosis. 4. Please note that the internal carotid cervical segments are significantly medialized with essentially a retropharyngeal course on the right. Wang Barker MD Head CTA 03/25/17 1202 Signed Impressions: Service Date/Time: March 13:51 - CONCLUSION: 1. Unremarkable CTA examination of the head. Specifically, no evidence for large vessel occlusion, intracranial stenosis, or aneurysm. Wang Barker MD Head CT 03/25/17 1202 Signed Impressions: Service Date/Time: March 13:51 - CONCLUSION: Normal examination for a patient of this age. Andrea Gee MD Chest X-Ray 03/25/17 1202 Signed Impressions: Service Date/Time: March 12:23 - CONCLUSION: No acute disease. Shahid Rogers MD Laboratory Tests - Abnormals Test 03/25/17 12:12 03/25/17 13:16 03/26/17 05:36 Estimat Glomerular Filtration Rate 58 ML/MIN 63 ML/MIN Hemoglobin A1c 6.2 % Troponin I LESS THAN 0.02 NG/ML Calcium Level 8.3 MG/DL Triglycerides Level 187 MG/DL HDL Cholesterol 69.8 MG/DL Vital Signs 03/25/17 03/25/17 03/25/17 03/25/17 12:31 13:15 16:18 16:49 Pulse 70 69 Resp 16 14 B/P (MAP) 165/65 (98) 118/84 (95) Pulse Ox 98 97 96 O2 Delivery Room Air 03/25/17 03/25/17 03/25/17 03/26/17 17:00 20:20 23:58 05:07 Temp 97.8 98.2 97.9 97.9 Pulse 65 67 63 69 Resp 18 16 16 16 B/P (MAP) 139/62 (87) 122/60 (80) 106/57 (73) 100/58 (72) Pulse Ox 95 94 96 97 03/26/17 07:57 Temp 97.4 Pulse 66 Resp 20 B/P (MAP) 123/58 (79) Pulse Ox 96 Physical exam O. CONSTITUTIONAL/GEN: normally nourished, in NAD. EYES: conjunctiva normal, PERRLA, EOMI. ENT: Mouth and pharynx normal. NECK: thyroid midline, carotids symmetrical. LUNGS: clear A-P, respiratory effort is normal. CARDIOVASCULAR: RR without murmur or gallop. No significant edema. GI/ABD: soft without masses, without organomegaly. : no CVA tenderness NEURO: No focal deficits. Gait is normal, CN intact, LE and UE strength 5/5 - - she is very limited in her rotation and ROM of the left shuolder -- unable to extend much at all actively SKIN: color normal, no rashes noted. HEME/LYMPH: no bruising, petechia or significant adenopathy MUSC: back is normal in appearance. Extremities are normal in appearance. PSYCH/MENTAL STATUS: Alert and oriented x 3. Assessment Assessment: (1) TIA (transient ischemic attack) Plan: 1. Patient placed on ASA and Plavix -- her symptoms have resolved. Workup by neurology is pending -_ EEG, brain imaging, labs Continue to monitor her with neuro checks and further treatment based on the workup already ordered. (2) Vestibular dysfunction (3) Left shoulder pain Plan: likely rotator cuff tear based on clinical picture -- MRI of the shoulder pending. This will likely require ortho fu as an outpatient (4) Hyperlipidemia Plan: levels look good -- continue her statin at this time (5) Arrhythmia Plan: stable -- no change -- monitor on telemetry (6) Diabetes mellitus Plan: HgBA1c 6.2 -- counselled on lifestyle changes -- Assessment 72 year old woman with neurologic symptoms a few days prior to admission which appear to have resolved. Workup is pending with neurology. Cardiovascular risk factors are optimized. PLAN PLAN Complete neuro workup as already ordered. Continue close monitoring. If workup negative anticipate dc to home today. Patient was seen and dw the resident team -_ Dr. Gurrola, Dr. Sravani Givens,Arlen Rios MD Mar 26, 2017 12:22
--- NOTE | 2017-03-26 12:24 | ECHRPT ---
Indication: cva/tia CONCLUSIONS Normal left ventricular size. Wall thickness is normal. Mitral annular calcification is present. [id number] mitral valve regurgitation. Aortic valve sclerosis is present. Mild aortic valve regurgitation. The estimated pulmonary arterial pressure is 30 mmHg. There is trace tricuspid valve regurgitation. Trivial pulmonary valve regurgitation. BP: 100 / 58 HR: 69 Rhythm: MEASUREMENTS (Male / Female) Normal Values Technical Quality: 2D ECHO LV Diastolic Diameter PLAX 3.8 cm 4.2 - 5.9 / 3.9 - 5.3 cm LV Systolic Diameter PLAX 2.6 cm IVS Diastolic Thickness 0.7 cm 0.6 - 1.0 / 0.6 - 0.9 cm LVPW Diastolic Thickness 0.5 cm 0.6 - 1.0 / 0.6 - 0.9 cm LV Relative Wall Thickness 0.3 RV Internal Dim ED PLAX 2.0 cm LA Systolic Diameter LX 3.5 cm 3.0 - 4.0 / 2.7 - 3.8 cm DOPPLER Mitral E Point Velocity 99.2 cm/s Mitral A Point Velocity 122.0 cm/s Mitral E to A Ratio 0.8 TR Peak Velocity 273.0 cm/s TR Peak Gradient 29.8 mmHg FINDINGS LEFT VENTRICLE Normal left ventricular size. Wall thickness is normal. The left ventricular systolic function is normal with an estimated ejection fraction in the range of 60-65%. RIGHT VENTRICLE Normal right ventricular size and systolic function. LEFT ATRIUM The left atrial size is normal. RIGHT ATRIUM The right atrial size is normal. ATRIAL SEPTUM Normal atrial septal thickness without atrial level shunting by limited color doppler interrogation. AORTA The aortic root and proximal ascending aorta are normal in size on limited imaging. MITRAL VALVE Mitral annular calcification is present. Kczv-[id number] mitral valve regurgitation. AORTIC VALVE Aortic valve sclerosis is present. Mild aortic valve regurgitation. TRICUSPID VALVE The estimated pulmonary arterial pressure is 30 mmHg. There is trace tricuspid valve regurgitation. PULMONARY VALVE Trivial pulmonary valve regurgitation. VESSELS The inferior vena cava is normal in size. PERICARDIUM No pericardial effusion. Joseph Diez MD (Electronically Signed) Final Date:26 March 2017 12:23
--- NOTE | 2017-03-26 13:07 | RADRPT ---
EXAM DATE/TIME: 03/26/2017 12:12 [facility] COMPARISON: No previous studies available for comparison. INDICATIONS : Left upper extremity weakness. MEDICAL HISTORY : Hypertension. SURGICAL HISTORY : Discectomy, cervical. Hysterectomy. Tonsillectomy. Orthopedic. ENCOUNTER: Initial ACUITY: 1 day PAIN SCORE: 0/10 LOCATION: cranial TECHNIQUE: Multiplanar, multisequence MRI of the brain was performed without contrast. FINDINGS: CEREBRUM: The ventricles are normal for age. No evidence of midline shift, mass lesion, hemorrhage or acute in farction. No extraaxial fluid collections are seen. The pituitary gland and suprasellar cistern are normal in configuration. WHITE MATTER: Mild signal abnormalities are seen in the white matter. POSTERIOR FOSSA: The cerebellum and brainstem are intact. The 4th ventricle is midline. The cerebellopontine angle is unremarkable. The cerebellar tonsils are normal in position. DIFFUSION IMAGING: No focal areas of restricted diffusion are seen. No evidence of acute infarction. EXTRACRANIAL: The visualized portions of the orbits and paranasal sinuses are unremarkable. CONCLUSION: 1. Mild white matter ischemic changes. No recent infarct. No mass, hemorrhage or shift. Esvin Oglesby MD on March 26, 2017 at 13:02 Board Certified Radiologist. This report was verified electronically.
--- NOTE | 2017-03-26 13:11 | RADRPT ---
EXAM DATE/TIME: 03/26/2017 12:12 [facility] COMPARISON: No previous studies available for comparison. INDICATIONS : Left upper extremity weakness. MEDICAL HISTORY : Hypertension. SURGICAL HISTORY : Fusion, cervical. Appendectomy. Tonsillectomy. Orthopaedic. ENCOUNTER: Initial ACUITY: 1 day PAIN SCORE: 0/10 LOCATION: cranial Please note a normal MRA of the brain does not entirely exclude the possibility of a small aneurysm, nor the possibility of distal intracranial vessel disease. TECHNIQUE: 3D time of flight MRA was performed. Source images, multiplanar STS MIP, and 3D volume MIP reconstru ctions were reviewed. FINDINGS: There is excellent visualization of the major intracranial arteries out to the second-order branch ve ssels. There is no evidence for aneurysm, vessel truncation or stenosis, and no evidence for vascula r malformation. CONCLUSION: Normal examination for a patient of this age. Esvin Oglesby MD on March 26, 2017 at 13:06 Board Certified Radiologist. This report was verified electronically.
--- NOTE | 2017-03-26 13:18 | RADRPT ---
EXAM DATE/TIME: 03/26/2017 12:12 [facility] COMPARISON: No previous studies available for comparison. INDICATIONS : Left upper extremity weakness. MEDICAL HISTORY : Hypertension. SURGICAL HISTORY : Fusion, cervical. Appendectomy. Tonsillectomy. Orthopedic ENCOUNTER: Initial ACUITY: 1 day PAIN SCORE: 0/10 LOCATION: Paraspinal TECHNIQUE: Multiplanar, multisequence MRI examination of the cervical spine was performed. FINDINGS: VERTEBRAE: Patient appears to be status post anterior cervical fusion at C4-5. There is focal primary bony degen erative changes with disc space narrowing at C3-4 and C5-6. There is mild anterior spondylolisthesis of C6 over C7 by 3 mm. There is disc space narrowing at C6-7. CORD: Normal configuration and signal. POST FOSSA: The cerebellar tonsils are normal in position. C2-C3: The thecal sac has a normal configuration. There is no evidence of disc herniation or spinal canal s tenosis. The neural foramina are patent bilaterally. C3-C4: Mild broad-based bulging. The neural foramina are patent bilaterally. C4-C5: The thecal sac has a normal configuration. There is no evidence of disc herniation or spinal canal s tenosis. The neural foramina are patent bilaterally. C5-C6: The thecal sac has a normal configuration. There is no evidence of disc herniation or spinal canal s tenosis. The neural foramina are patent bilaterally. C6-C7: Diffuse broad-based bulging with mild narrowing of the neural foramina bilaterally. C7-T1: The thecal sac has a normal configuration. There is no evidence of disc herniation or spinal canal s tenosis. The neural foramina are patent bilaterally. Bilateral facet arthritis. CONCLUSION: 1. Status post anterior cervical fusion C4-5. 2. Grade 1 anterior spondylolisthesis of C6 over C7 by approximately 3 mm. 3. Diffuse broad-based bulging at C6-7. 4. Mild diffuse broad-based bulging C3-C4. 5. Degenerative type changes with disc space at C3-4, C5-6 and C6-7. Andrea Gee MD on March 26, 2017 at 13:13 Board Certified Radiologist. This report was verified electronically.
--- NOTE | 2017-03-26 13:30 | RADRPT ---
EXAM DATE/TIME: 03/26/2017 12:54 [facility] COMPARISON: No previous studies available for comparison. INDICATIONS : Left upper extremity weakness. MEDICAL HISTORY : Hypertension. SURGICAL HISTORY : Appendectomy. Fusion, cervical. Tonsillectomy. Orthopedic. ENCOUNTER: Initial ACUITY: 1 day PAIN SCORE: 0/10 LOCATION: Left arm TECHNIQUE: Multiplanar, multisequence MRI examination was performed without contrast. FINDINGS: ROTATOR CUFF: The supraspinatus, infraspinatus, subscapularis, and teres minor tendons are intact. There is some in creased signal within the supraspinatus tendon near the insertion on the greater tuberosity. This is suggestive of tendinosis. Also, there is some narrowing of the space between the undersurface of the acromion process and top of the humerus. There are degenerative changes at the a.c. joint. LABRUM: Labrum is within normal limits. MARROW/CARTILAGE: Bone marrow signal is homogeneous. Glenohumeral joint articular cartilage is thinned. OTHER: There is a small joint effusion. There is no significant fluid in the subacromial or subdeltoid bursa . No evidence of adenopathy. CONCLUSION: 1. Mild primary degenerative changes of the shoulder joint characteristics for patient's age. 2. Findings suggestive of shoulder impingement syndrome 3. Tendinosis in the supraspinatus tendon. 4. Small nonspecific joint effusion. Andrea Gee MD on March 26, 2017 at 13:24 Board Certified Radiologist. This report was verified electronically.
[2017-03-26] MEDS ORDERED: ASPI325T PO (15:47)
[2017-03-26] MEDS ORDERED: PLAV75TA29 PO (15:47)
--- NOTE | 2017-03-26 15:49 | HHI.DCPOC ---
Discharge Care Plan Diagnosis: (1) TIA (transient ischemic attack) Goals to Promote Your Health * To prevent worsening of your condition and complications, take your meds and follow up with your doctors * To maintain your health at the optimal level, eat a Mediterranean diet and exercise at least 30 min daily Directions to Meet Your Goals Take your medications as prescribed Follow your dietary instruction Follow activity as directed Keep your appointments as scheduled Take your immunizations and boosters as scheduled If your symptoms worsen call your PCP, if no PCP go to Urgent Care Center or Emergency Room Smoking is Dangerous to Your Health. Avoid second hand smoke Call the 24-hour hour crisis hotline for domestic abuse at Rama Lassiter MD R1 Mar 26, 2017 15:49
[2017-03-26 16:29] VITALS: BP 119/55; PULSE 66; RESP 20; TEMP 97.5; O2SAT 96
--- NOTE | 2017-03-26 22:03 | EKG ---
Date Performed: 03/25/2017 Time Performed: 12:24:02 PTAGE: 72 years EKG: Sinus rhythm LOW QRS VOLTAGE IN PRECORDIAL LEADS SEPTAL MYOCARDIAL INFARCTION ABNORMAL ECG PREVIOUS TRACING : 05/25/2006 10.16 Compared to prior tracing no significant change DOCTOR: Alberto Barclay Interpretating Date/Time 03/26/2017 21:42:08
--- NOTE | 2017-03-27 09:19 | MG ---
cc: SAM WALTER MD Lab No: Date: 03/27/2017 Age: Sex: F Race: DATE OF [address] Hare MEDICAL HISTORY History of visual disturbance, migraine, weakness, hypertension, stroke, diabetes mellitus, alcohol and caffeine use hypercholesteremia. MEDICATIONS 1. Lipitor. 2. Aspirin. 3. Plavix. DESCRIPTION The background activity is 8-9 Hz alpha located posteriorly superimposed by excess beta activity. During the recording there is mild generalized slowing in the theta range. The EEG is contaminated by excessive movement and muscle artifact. Hyperventilation was followed by mild normal slowing. Photic stimulation did not elicit driving response. There were no electrographic seizures or epileptiform discharges seen. FINDINGS: This is an awake and drowsy EEG. Excess beta activity is a nonspecific finding that may indicate medication adverse effects like benzos and barbituates. Absence of electrographic seizures or epileptiform discharges does not rule out a diagnosis of epilepsy. Clinical correlation is recommended. Sam Walter MD [facility]/wanda /8:51 AM /9:14 AM NASRA
== END 2017-03-26 18:19 | disposition home or self-care (01) | DRG 69 ==
LOC: NEPC 11:51 → NEDA 15:14 → OBSVTOIN 16:02 → N05B 16:53
PROVIDERS: ADMIT Family Medicine; ATTEND Family Medicine
DX: G45.9 Transient cerebral ischemic attack, unspecified (principal); E11.9 Type 2 diabetes mellitus without complications; M48.02 Spinal stenosis, cervical region; I10 Essential (primary) hypertension; J45.909 Unspecified asthma, uncomplicated; E78.00 Pure hypercholesterolemia, unspecified; Z86.73 Personal history of transient ischemic attack (TIA), and cerebral infarction without residual deficits; K21.9 Gastro-esophageal reflux disease without esophagitis; G43.809 Other migraine, not intractable, without status migrainosus; I08.0 Rheumatic disorders of both mitral and aortic valves; Z87.891 Personal history of nicotine dependence; M25.512 Pain in left shoulder; I65.23 Occlusion and stenosis of bilateral carotid arteries; M50.30 Other cervical disc degeneration, unspecified cervical region; Z82.49 Family history of ischemic heart disease and other diseases of the circulatory system
CPT/HCPCS: 70450; 70496; 70498; 70544; 70551; 71010; 72141; 73221; 80048; 80053; 80061; 81001; 82550; 82948; 83036; 84484; 85025; 85610; 85730; 93005; 93306; 95819; J7030; Q9967

== ENCOUNTER → 2017-05-04 | Outpatient (CLI) | payer MEDICARE ==
[~2017-05-04] MED LIST changes: -AMLO5TAB96 PO; +ASPI-183 PO; -ATOR10 PO; +ATOR20TA15 PO; +CALC500C2 CHEW; -CALC600T34 PO; +CARD240C6 PO; -CART240C4 PO; -ESTR2TAB PO; -LORTA5 PO; -METF500 PO; +METF500T4 PO; +PANT20 PO; +PLAV75TA29 PO; -PROT40TA PO; -SPIR25 PO; +SPIR25TA PO; -TAB-TAB PO; -WALKER STANDARD; -[UNRECOGNIZED DRUG - OTHER]; -magnesium PO
[2017-05-04 13:34] LABS: ANION GAP 5 MEQ/L (5-15); AST (GOT) 20 U/L (15-37); BICARBONATE 25.8 MEQ/L (21.0-32.0); BLOOD UREA NITROGEN 18 MG/DL (7-18); CHLORIDE 103 MEQ/L (98-107); GLOMERULAR FILTRATION RATE 54 ML/MIN (>89); GLUCOSE,FASTING 90 MG/DL (74-99); HEMATOCRIT 38.7 % (35.0-46.0); MEAN CELL VOLUME 93.2 FL (80.0-100.0); MEAN CORPUSCULAR HGB CONC 34.3 % (32.0-36.0); PLATELET COUNT 242 TH/MM3 (150-450); POTASSIUM 4.1 MEQ/L (3.5-5.1); RED BLOOD COUNT 4.15 MIL/MM3 (4.00-5.30); RED CELL DISTRIBUTION WIDTH 13.1 % (11.6-17.2); REVIEW FLAG FINAL; SODIUM (NA) 134 MEQ/L (136-145); WHITE BLOOD COUNT 7.8 TH/MM3 (4.0-11.0)
[2017-05-04 13:39] LABS: ALKALINE PHOSPHATASE 75 U/L (45-117); ALT (GPT) 21 U/L (10-53); HDL CHOLESTEROL 65.6 MG/DL (40.0-60.0); LDL CHOLESTEROL 93 MG/DL (0-99); LDL CHOLESTEROL DIRECT 110 MG/DL (0-99); TOTAL BILIRUBIN ADULT 0.4 MG/DL (0.2-1.0)
[2017-05-04 17:34] LABS: HEMOGLOBIN A1a 1.1 %; HEMOGLOBIN A1b 0.7 %; HEMOGLOBIN Ao 54.4 %; HEMOGLOBIN F 1.1 %; HEMOGLOBIN LA1C 1.4 %; HEMOGLOBIN P3 2.6 %
== END ==
LOC: PLAB 08:33
PROVIDERS: ATTEND Internal Medicine Interventional Cardiology
DX: R73.09 Other abnormal glucose (principal); G45.9 Transient cerebral ischemic attack, unspecified; E78.5 Hyperlipidemia, unspecified; Z79.899 Other long term (current) drug therapy
CPT/HCPCS: 36415; 80053; 80061; 83036; 83721; 85027

== ENCOUNTER 2017-05-13 07:38 | Day surgery (SDC) | payer MEDICARE ==
[2017-05-13] MEDS ORDERED: ceFAZolin 2 GM PREMIX 50 ML IV SCH (08:30)
[2017-05-13] MEDS ORDERED: CHLORHEXIDINE GLUCONATE 2 % 1 PACK (2 CLOTHS) TOPICAL SCH (08:30)
[2017-05-13] MEDS ORDERED: POVIDONE IODINE 5% (ANTISEPSIS KIT) 4 APPLICATIONS EACH NARE SCH (08:30)
[2017-05-13] MEDS ORDERED: NS 1000 ML IV SCH (08:30)
[2017-05-13] MEDS ORDERED: Hold AM Insulin & AM Hypoglycemic medications in diabetic patients PRN (08:30)
[2017-05-13] MEDS ORDERED: MUPIROCIN 2% OINT 1 APPLIC/GM SYR NASAL SCH (08:30)
[2017-05-13] MEDS ORDERED: MAGN500T2 PO (08:41)
[2017-05-13] MEDS ORDERED: ALLERGY INJECTIONS (08:41)
[2017-05-13] MEDS ORDERED: BRIM0.2S4 EACH EYE (08:41)
[2017-05-13] MEDS ORDERED: ESTR2TAB4 PO (08:41)
[2017-05-13] MEDS ORDERED: MIDAZOLAM HCL 5 MG/ML VIAL (1 ML) ONE (09:39)
--- NOTE | 2017-05-13 10:44 | MP ---
cc: EDIL YANG M.D., DAVID W. M.D. DATE OF SURGERY 05/13/2017 PROCEDURE PERFORMED Implantation of a loop recorder PREOPERATIVE DIAGNOSIS TIA/CVA of uncertain etiology. POSTOPERATIVE DIAGNOSIS TIA/CVA of uncertain etiology, rule out of paroxysmal atrial fibrillation. PROCEDURE PERFORMED The patient was brought to the outpatient diagnostic unit and following an informed consent, the area of the fourth interspace at the left sternal border was prepped and draped in the usual sterile manner. The patient was given Versed 2 mg and Fentanyl 25 mg for awake sedation. A total of 10 mL of 1% Xylocaine was used for local anesthesia. A loop recorder was implanted in the usual fashion using the [employer] delivery device. Steri-Strips and a sterile pressure dressing was placed. The patient will be recovered and discharged home later today. DEVICE INFORMATION Med[employer]onic model number 97558, serial number [id number]. Initial R-wave amplitude 0.31 mV. There were no complications. MD CLINT Malone/SHAILESH /10:16 AM /10:34 AM
== END 2017-05-13 11:19 | disposition home or self-care (01) ==
LOC: HDOC 07:38 → HDIC 07:40 → HDOC 11:19
PROVIDERS: ATTEND Internal Medicine Interventional Cardiology
DX: I63.9 Cerebral infarction, unspecified (principal); I10 Essential (primary) hypertension
CPT/HCPCS: 33282; C1764; J0690; J2250; J3010

== ENCOUNTER 2017-05-27 07:27 | Day surgery (SDC) | payer MEDICARE ==
[~2017-05-27 07:27] MED LIST changes: +ALLERGY INJECTIONS; -ASPI-183 PO; +BRIM0.2S4 EACH EYE; +ESTR2TAB4 PO; +MAGN500T2 PO
[2017-05-27] MEDS ORDERED: CHLORHEXIDINE GLUCONATE 2 % 1 PACK (2 CLOTHS) TOPICAL PRN (07:45)
[2017-05-27] MEDS ORDERED: POVIDONE IODINE 5% (ANTISEPSIS KIT) 4 APPLICATIONS EACH NARE PRN (07:45)
[2017-05-27] MEDS ORDERED: SODIUM CHLORID 0.9% 500 ML IV PRN (07:45)
[2017-05-27] MEDS ORDERED: LACTATED RINGER'S 1000 ML IV PRN (07:45)
[2017-05-27] MEDS ORDERED: METOPROLOL TARTRATE 25 MG TAB PO PRN (07:45)
[2017-05-27] MEDS ORDERED: INSULIN HUMAN REGULAR 1,000 UNITS/10 ML VIAL SQ PRN (07:45)
[2017-05-27] MEDS ORDERED: NITR0.4S SL (08:22)
[2017-05-27] MEDS ORDERED: BECL0.07 INH (08:22)
[2017-05-27] MEDS ORDERED: VENTAER INH (08:22)
[2017-05-27] MEDS ORDERED: MIDAZOLAM HCL 5 MG/ML VIAL (1 ML) ONE ×2 (08:57→09:15)
[2017-05-27] MEDS ORDERED: MISCELLANEOUS NURSING INFORMATION XX PRN (09:30)
[2017-05-27] MEDS ORDERED: BENZOCAINE 20% ORAL SPR 60 ML CAN OROPHARYNG ONE (10:00)
== END 2017-05-27 11:10 | disposition home or self-care (01) ==
LOC: HDIC 07:27 → HDOC 07:27
PROVIDERS: ATTEND Internal Medicine Interventional Cardiology
DX: I51.0 Cardiac septal defect, acquired (principal); G45.9 Transient cerebral ischemic attack, unspecified
CPT/HCPCS: 93312; 93320; 93325; J2250; J3010

== ENCOUNTER → 2017-11-12 | Outpatient (CLI) | payer MEDICARE ==
[~2017-11-12] MED LIST changes: -ALLERGY INJECTIONS; +BECL0.07 INH; +NITR0.4S SL; +VENTAER INH
[2017-11-12 13:24] LABS: AUTOMATED NEUTROPHIL # 4.2 TH/MM3 (1.8-7.7); BASOPHIL % 0.4 % (0.0-2.0); EOSINOPHIL % 0.4 % (0.0-4.0); HEMATOCRIT 39.8 % (35.0-46.0); HEMOGLOBIN 13.6 GM/DL (11.6-15.3); LYMPH % 30.6 % (9.0-44.0); LYMPHOCYTE # 2.1 TH/MM3 (1.0-4.8); MEAN CELL VOLUME 90.8 FL (80.0-100.0); MEAN CORPUSCULAR HEMOGLOBIN 30.9 PG (27.0-34.0); MEAN CORPUSCULAR HGB CONC 34.1 % (32.0-36.0); MEAN PLATELET VOLUME 7.5 FL (7.0-11.0); MONO % 6.5 % (0.0-8.0); MONOCYTE # 0.4 TH/MM3 (0-0.9); NEUT % 62.1 % (16.0-70.0); PLATELET COUNT 353 TH/MM3 (150-450); RED BLOOD COUNT 4.38 MIL/MM3 (4.00-5.30); RED CELL DISTRIBUTION WIDTH 13.6 % (11.6-17.2); WHITE BLOOD COUNT 6.8 TH/MM3 (4.0-11.0)
[2017-11-12 13:46] LABS: ALBUMIN 3.3 GM/DL (3.4-5.0); ALT (GPT) 24 U/L (10-53); AST (GOT) 21 U/L (15-37); BICARBONATE 25.8 MEQ/L (21.0-32.0); BLOOD UREA NITROGEN 16 MG/DL (7-18); CALCIUM 8.5 MG/DL (8.5-10.1); CHLORIDE 105 MEQ/L (98-107); CHOLESTEROL 188 MG/DL (120-200); CREATININE 1.06 MG/DL (0.50-1.00); GLOMERULAR FILTRATION RATE 51 ML/MIN (>89); GLUCOSE,FASTING 92 MG/DL (74-99); SODIUM (NA) 139 MEQ/L (136-145)
[2017-11-12 13:48] LABS: ALKALINE PHOSPHATASE 76 U/L (45-117); CHOLESTEROL/ HDL RATIO 2.88 RATIO; HDL CHOLESTEROL 65.1 MG/DL (40.0-60.0); LDL CHOLESTEROL 89 MG/DL (0-99); LDL CHOLESTEROL DIRECT 98 MG/DL (0-99); TOTAL BILIRUBIN ADULT 0.4 MG/DL (0.2-1.0); TOTAL PROTEIN 7.1 GM/DL (6.4-8.2); TRIGLYCERIDES 169 MG/DL (42-150)
[2017-11-12 15:54] LABS: HEMOGLOBIN A1C 6.4 % (4.3-6.0)
== END ==
LOC: PLAB 09:27
PROVIDERS: ATTEND Family Medicine
DX: E78.5 Hyperlipidemia, unspecified (principal); N18.3 Chronic kidney disease, stage 3 (moderate); R73.09 Other abnormal glucose
CPT/HCPCS: 36415; 80053; 80061; 82306; 82570; 83036; 83721; 83970; 84156; 85025

== ENCOUNTER 2018-02-25 10:57 | Inpatient (IN) ==
[2018-02-25] MEDS ORDERED: Morphine Inj 4 MG/ML Vial IV.PUSH ONE ×2 (11:33→13:21)
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
[2018-02-25 12:01] LABS: Baso % (Auto) 0.3 % (0.0-2.0); Eos # (Auto) 0.1 th/mm3 (0.0-0.4); Eos % (Auto) 0.9 % (0.0-4.0); Hematocrit 42.5 % (35.0-46.0); Hemoglobin 14.5 gm/dL (11.6-15.3); Lymph # (Auto) 2.1 th/mm3 (1.0-4.8); Lymph % (Auto) 20.2 % (9.0-44.0); Mean Corpuscular HGB Conc 34.1 % (32.0-36.0); Mean Corpuscular Volume 90.7 fL (80.0-100.0); Mono # (Auto) 0.5 th/mm3 (0.0-0.9); Mono % (Auto) 4.7 % (0.0-8.0); Neut # (Auto) 7.8 th/mm3 (1.8-7.7); Neut % (Auto) 73.9 % (16.0-70.0); Platelet Count 294 th/mm3 (150-450); Red Blood Count 4.69 mil/mm3 (4.00-5.30); Red Cell Distribution Width 12.1 % (11.6-17.2); White Blood Count 10.5 th/mm3 (4.0-11.0)
[2018-02-25 12:24] LABS: Calcium 9.3 mg/dL (8.5-10.1); Carbon Dioxide 23.1 meq/L (21.0-32.0); Potassium 4.6 meq/L (3.5-5.1)
[2018-02-25] MEDS ORDERED: Senna/Docusate Sodium 8.6/50 MG Tablet PO SCH (21:00)
[2018-02-26] MEDS ORDERED: Chlorhexidine Gluconate 2% 1 Pack (2 Cloths) TOPICAL SCH (04:00)
[2018-02-26] MEDS ORDERED: Chlorhexidine Gluconate 2% 1 Pack (2 Cloths) TOPICAL PRN (04:00)
[2018-02-26 04:41] LABS: Baso % (Auto) 0.4 % (0.0-2.0); Eos # (Auto) 0.1 th/mm3 (0.0-0.4); Eos % (Auto) 1.4 % (0.0-4.0); Hematocrit 39.5 % (35.0-46.0); Hemoglobin 13.7 gm/dL (11.6-15.3); Lymph # (Auto) 3.3 th/mm3 (1.0-4.8); Mean Corpuscular HGB Conc 34.6 % (32.0-36.0); Mean Corpuscular Hemoglobin 31.6 pg (27.0-34.0); Mean Corpuscular Volume 91.3 fL (80.0-100.0); Mono # (Auto) 0.7 th/mm3 (0.0-0.9); Mono % (Auto) 7.4 % (0.0-8.0); Neut # (Auto) 5.7 th/mm3 (1.8-7.7); Neut % (Auto) 57.8 % (16.0-70.0); Platelet Count 281 th/mm3 (150-450); Red Blood Count 4.32 mil/mm3 (4.00-5.30); Red Cell Distribution Width 12.3 % (11.6-17.2); White Blood Count 9.9 th/mm3 (4.0-11.0)
[2018-02-26 05:14] LABS: Calcium 8.4 mg/dL (8.5-10.1); Carbon Dioxide 21.9 meq/L (21.0-32.0)
[2018-02-26] MEDS ORDERED: dilTIAZem CD 240 MG Capsule PO SCH (09:00)
[2018-02-26] MEDS ORDERED: Spironolactone 25 MG Tablet PO SCH (09:00)
== END 2018-02-26 15:46 | disposition home or self-care (01) ==
LOC: NEDA 10:57 → NEPE 10:57 → NEDA 19:15 → N05 19:19
PROVIDERS: ADMIT Surgery; ATTEND Surgery